=== PATIENT | male | born 1960 | race Caucasian/White ===

== ENCOUNTER 2022-08-06 12:05 | Inpatient (IN) | payer MEDICAID ==
[~2022-08-06] VITALS: Ht 162.6 cm; Wt 59.9 kg
[2022-08-06 12:30] VITALS: BP 106/83
[2022-08-06] MEDS ORDERED: HYDROCODONE/ACETAMINOPHEN 5-325 MG TABLET PO PRN (14:30)
[2022-08-06] MEDS ORDERED: DEXTROSE 50%-WATER 25 GM/50 ML SYRINGE IVP PRN (14:30)
[2022-08-06] MEDS ORDERED: ONDANSETRON HCL 4 MG TABLET PO PRN (14:30)
[2022-08-06 17:52] LABS: GLUCOMETER DEV NAME(LOC) 2WR.1C; GLUCOSE,POINT OF CARE 219 MG/DL (70-110)
[2022-08-06] MEDS: INSULIN LISPRO 100 UNITS/ML SQ PRN ×2 (17:55→20:12)
[2022-08-06] MEDS: CAPTOPRIL 25 MG TABLET PO SCH ×2 (17:57→21:00)
[2022-08-06] MEDS: GABAPENTIN 100 MG CAPSULE PO SCH ×2 (17:57→20:04)
[2022-08-06] MEDS ORDERED: INFLUENZA VIRUS VACCINE QVS 2022-23 (6MO+)/PF 60 MCG/0.5 ML SYRINGE IM. ONE (18:30)
[2022-08-06 19:44] VITALS: BP 102/65
[2022-08-06] MEDS: ATORVASTATIN CALCIUM 40 MG TABLET PO SCH (20:04)
[2022-08-06] MEDS: DOCUSATE SODIUM 100 MG CAPSULE PO SCH (20:04)
[2022-08-06] MEDS: SENNOSIDES 8.6 MG TABLET PO SCH (20:06)
[2022-08-06] MEDS: INSULIN GLARGINE,HUM.REC.ANLOG 100 UNITS/ML SQ SCH (20:11)
[2022-08-06 21:44] VITALS: BP 107/72
[2022-08-06 21:51] LABS: GLUCOMETER DEV NAME(LOC) 2WR.2B; GLUCOSE,POINT OF CARE 156 MG/DL (70-110)
[2022-08-06] MEDS: ETHYL ALCOHOL 62% ANTISEPTIC NASAL SANITIZER 0.6 ML AMPUL NASAL SCH (22:12)
[2022-08-07 06:51] LABS: GLUCOMETER DEV NAME(LOC) 2WR.2B; GLUCOSE,POINT OF CARE 162 MG/DL (70-110)
[2022-08-07 07:39] LABS: BASOPHILS % (AUTO) 0.4 % (0.0-2.0); EOSINOPHILS % (AUTO) 8.3 % (1.0-6.0); HEMATOCRIT 40.3 % (41-53); HEMOGLOBIN 13.6 g/dL (13.5-17.5); LYMPHOCYTES # (AUTO) 1.8 K/uL (1.0-4.8); LYMPHOCYTES % (AUTO) 21.5 % (22.0-44.0); MEAN CORPUSCULAR HEMOGLOBIN 28.7 pg (26.0-34.0); MEAN CORPUSCULAR HGB CONC 33.7 G/dL (31.0-37.0); MEAN CORPUSCULAR VOLUME 85 fL (80-100); MONOCYTES # (AUTO) 0.5 K/uL (0.1-1.0); MONOCYTES % (AUTO) 5.7 % (2.0-9.0); NEUTROPHILS # (AUTO) 5.4 K/uL (1.8-7.7); NEUTROPHILS % (AUTO) 64.1 % (40.0-70.0); PLATELET COUNT (AUTO) 384 K/uL (150-450); RED BLOOD CELL COUNT(AUTO) 4.74 MIL/uL (4.50-5.90); RED CELL DISTRIBUTION WIDTH 12.8 % (11.5-14.5)
[2022-08-07 07:59] LABS: ALBUMIN 2.6 g/dL (3.4-5.0); BILIRUBIN,TOTAL 0.2 mg/dL (0.1-1.0); CALCIUM, TOTAL 8.6 mg/dL (8.8-10.5); CREATININE 1.4 mg/dL (0.60-1.30); POTASSIUM 3.8 mmol/L (3.5-5.1); TOTAL PROTEIN, SERUM 7.1 g/dL (6.4-8.2)
[2022-08-07 08:04] VITALS: BP 120/79
[2022-08-07] MEDS: INSULIN LISPRO 100 UNITS/ML SQ PRN ×4 (08:18→20:37)
[2022-08-07] MEDS: ENOXAPARIN SODIUM 40 MG/0.4 ML PF SYRINGE SQ SCH (08:21)
[2022-08-07] MEDS: CLOPIDOGREL BISULFATE 75 MG TABLET PO SCH (08:22)
[2022-08-07] MEDS: DOCUSATE SODIUM 100 MG CAPSULE PO SCH ×2 (08:22→20:33)
[2022-08-07] MEDS: ASPIRIN/DIPYRIDAMOLE ER 25/200 MG ER CAPSULE PO SCH (08:22)
[2022-08-07] MEDS: FAMOTIDINE 20 MG TABLET PO SCH (08:23)
[2022-08-07] MEDS: ETHYL ALCOHOL 62% ANTISEPTIC NASAL SANITIZER 0.6 ML AMPUL NASAL SCH ×2 (08:23→20:32)
[2022-08-07] MEDS: GABAPENTIN 100 MG CAPSULE PO SCH ×3 (08:23→20:33)
[2022-08-07] MEDS: CAPTOPRIL 25 MG TABLET PO SCH ×3 (08:23→20:32)
[2022-08-07 12:06] LABS: GLUCOMETER DEV NAME(LOC) 2WR.1C; GLUCOSE,POINT OF CARE 158 MG/DL (70-110)
[2022-08-07] MEDS ORDERED: LACTULOSE 20 GM/30 ML SOLUTION UDCUP PO ONE (15:45)
[2022-08-07] MEDS ORDERED: LACTULOSE 20 GM/30 ML SOLUTION UDCUP PO PRN (16:00)
[2022-08-07 17:36] LABS: GLUCOMETER DEV NAME(LOC) 2WR.2B; GLUCOSE,POINT OF CARE 202 MG/DL (70-110)
[2022-08-07] MEDS: ATORVASTATIN CALCIUM 40 MG TABLET PO SCH (20:32)
[2022-08-07] MEDS: TAMSULOSIN HCL 0.4 MG CAPSULE PO SCH (20:32)
[2022-08-07 20:33] VITALS: BP 116/77
[2022-08-07] MEDS: SENNOSIDES 8.6 MG TABLET PO SCH (20:33)
[2022-08-07] MEDS: INSULIN GLARGINE,HUM.REC.ANLOG 100 UNITS/ML SQ SCH (20:35)
[2022-08-07 21:41] LABS: GLUCOMETER DEV NAME(LOC) 2WR.1C; GLUCOSE,POINT OF CARE 180 MG/DL (70-110)
[2022-08-08 07:02] LABS: GLUCOMETER DEV NAME(LOC) 2WR.2B; GLUCOSE,POINT OF CARE 137 MG/DL (70-110)
[2022-08-08 08:00] VITALS: BP 106/74
[2022-08-08] MEDS: FAMOTIDINE 20 MG TABLET PO SCH (08:14)
[2022-08-08] MEDS: ENOXAPARIN SODIUM 40 MG/0.4 ML PF SYRINGE SQ SCH (08:14)
[2022-08-08] MEDS: ETHYL ALCOHOL 62% ANTISEPTIC NASAL SANITIZER 0.6 ML AMPUL NASAL SCH ×2 (08:14→21:35)
[2022-08-08] MEDS: DOCUSATE SODIUM 250 MG CAPSULE PO SCH ×2 (08:14→21:24)
[2022-08-08] MEDS: ASPIRIN/DIPYRIDAMOLE ER 25/200 MG ER CAPSULE PO SCH (08:15)
[2022-08-08] MEDS: CLOPIDOGREL BISULFATE 75 MG TABLET PO SCH (08:15)
[2022-08-08] MEDS: CAPTOPRIL 25 MG TABLET PO SCH ×3 (08:15→21:25)
[2022-08-08] MEDS: GABAPENTIN 100 MG CAPSULE PO SCH ×3 (08:15→21:23)
[2022-08-08] MEDS ORDERED: PNEUMOCOCCAL VACCINE POLYVALENT 0.5 ML VIAL [PPSV23] IM. ONE (12:15)
[2022-08-08] MEDS: INSULIN LISPRO 100 UNITS/ML SQ PRN ×3 (12:33→21:29)
[2022-08-08 14:01] LABS: GLUCOMETER DEV NAME(LOC) 2WR.2B; GLUCOSE,POINT OF CARE 176 MG/DL (70-110)
[2022-08-08 16:30] VITALS: BP 108/57
[2022-08-08 17:17] LABS: GLUCOMETER DEV NAME(LOC) 2WR.1C; GLUCOSE,POINT OF CARE 249 MG/DL (70-110)
[2022-08-08 21:00] VITALS: BP 119/80
[2022-08-08] MEDS: SENNOSIDES 8.6 MG TABLET PO SCH (21:24)
[2022-08-08] MEDS: TAMSULOSIN HCL 0.4 MG CAPSULE PO SCH (21:25)
[2022-08-08] MEDS: INSULIN GLARGINE,HUM.REC.ANLOG 100 UNITS/ML SQ SCH (21:26)
[2022-08-08] MEDS: ATORVASTATIN CALCIUM 40 MG TABLET PO SCH (21:33)
[2022-08-08] MEDS: DOCUSATE SODIUM 283 MG/5 ML MINI-ENEMA PR PRN (21:34)
[2022-08-08 22:21] LABS: GLUCOMETER DEV NAME(LOC) 2WR.2B; GLUCOSE,POINT OF CARE 234 MG/DL (70-110)
[2022-08-09 07:06] LABS: GLUCOMETER DEV NAME(LOC) 2WR.2B; GLUCOSE,POINT OF CARE 173 MG/DL (70-110)
[2022-08-09 08:00] VITALS: BP 116/76
[2022-08-09] MEDS: ENOXAPARIN SODIUM 40 MG/0.4 ML PF SYRINGE SQ SCH (08:09)
[2022-08-09] MEDS: ASPIRIN/DIPYRIDAMOLE ER 25/200 MG ER CAPSULE PO SCH (08:09)
[2022-08-09] MEDS: CAPTOPRIL 25 MG TABLET PO SCH ×3 (08:09→21:12)
[2022-08-09] MEDS: ETHYL ALCOHOL 62% ANTISEPTIC NASAL SANITIZER 0.6 ML AMPUL NASAL SCH ×2 (08:10→21:18)
[2022-08-09] MEDS: DOCUSATE SODIUM 250 MG CAPSULE PO SCH ×2 (08:10→21:13)
[2022-08-09] MEDS: GABAPENTIN 100 MG CAPSULE PO SCH ×3 (08:10→21:12)
[2022-08-09] MEDS: FAMOTIDINE 20 MG TABLET PO SCH (08:10)
[2022-08-09] MEDS: CLOPIDOGREL BISULFATE 75 MG TABLET PO SCH (08:10)
[2022-08-09] MEDS: INSULIN LISPRO 100 UNITS/ML SQ PRN ×4 (08:34→21:15)
[2022-08-09 12:56] LABS: GLUCOMETER DEV NAME(LOC) 2WR.1C; GLUCOSE,POINT OF CARE 230 MG/DL (70-110)
[2022-08-09 16:20] VITALS: BP 114/80
[2022-08-09 17:17] LABS: GLUCOMETER DEV NAME(LOC) 2WR.1C; GLUCOSE,POINT OF CARE 181 MG/DL (70-110)
[2022-08-09 21:09] VITALS: BP 118/78
[2022-08-09 21:11] LABS: GLUCOMETER DEV NAME(LOC) 2WR.2B; GLUCOSE,POINT OF CARE 205 MG/DL (70-110)
[2022-08-09] MEDS: SENNOSIDES 8.6 MG TABLET PO SCH (21:12)
[2022-08-09] MEDS: TAMSULOSIN HCL 0.4 MG CAPSULE PO SCH (21:12)
[2022-08-09] MEDS: ATORVASTATIN CALCIUM 40 MG TABLET PO SCH (21:13)
[2022-08-09] MEDS: INSULIN GLARGINE,HUM.REC.ANLOG 100 UNITS/ML SQ SCH (21:14)
[2022-08-10 06:41] LABS: GLUCOMETER DEV NAME(LOC) 2WR.1C; GLUCOSE,POINT OF CARE 128 MG/DL (70-110)
[2022-08-10 08:00] VITALS: BP 99/67
[2022-08-10] MEDS: ETHYL ALCOHOL 62% ANTISEPTIC NASAL SANITIZER 0.6 ML AMPUL NASAL SCH ×2 (08:21→21:02)
[2022-08-10] MEDS: ASPIRIN/DIPYRIDAMOLE ER 25/200 MG ER CAPSULE PO SCH (08:22)
[2022-08-10] MEDS: CAPTOPRIL 25 MG TABLET PO SCH ×3 (08:23→21:00)
[2022-08-10] MEDS: DOCUSATE SODIUM 250 MG CAPSULE PO SCH ×2 (08:23→21:00)
[2022-08-10] MEDS: CLOPIDOGREL BISULFATE 75 MG TABLET PO SCH (08:24)
[2022-08-10] MEDS: FAMOTIDINE 20 MG TABLET PO SCH (08:24)
[2022-08-10] MEDS: GABAPENTIN 100 MG CAPSULE PO SCH ×3 (08:24→21:04)
[2022-08-10] MEDS: ENOXAPARIN SODIUM 40 MG/0.4 ML PF SYRINGE SQ SCH (08:24)
[2022-08-10] MEDS: ACETAMINOPHEN 325 MG TABLET PO PRN ×2 (08:26→13:50)
[2022-08-10 08:30] VITALS: BP 102/81
[2022-08-10] MEDS: INSULIN LISPRO 100 UNITS/ML SQ PRN ×3 (12:33→21:16)
[2022-08-10 13:17] LABS: GLUCOMETER DEV NAME(LOC) 2WR.2B; GLUCOSE,POINT OF CARE 158 MG/DL (70-110)
[2022-08-10 16:45] VITALS: BP 116/84
[2022-08-10 20:11] LABS: GLUCOMETER DEV NAME(LOC) 2WR.1C; GLUCOSE,POINT OF CARE 157 MG/DL (70-110)
[2022-08-10] MEDS: SENNOSIDES 8.6 MG TABLET PO SCH (21:00)
[2022-08-10 21:02] LABS: GLUCOMETER DEV NAME(LOC) 2WR.2B; GLUCOSE,POINT OF CARE 173 MG/DL (70-110)
[2022-08-10] MEDS: ATORVASTATIN CALCIUM 40 MG TABLET PO SCH (21:03)
[2022-08-10] MEDS: TAMSULOSIN HCL 0.4 MG CAPSULE PO SCH (21:04)
[2022-08-10] MEDS: INSULIN GLARGINE,HUM.REC.ANLOG 100 UNITS/ML SQ SCH (21:08)
[2022-08-10 21:32] VITALS: BP 99/69
[2022-08-11 06:51] LABS: GLUCOMETER DEV NAME(LOC) 2WR.1C; GLUCOSE,POINT OF CARE 119 MG/DL (70-110)
[2022-08-11 07:38] LABS: ANION GAP 8 mmol/L (8-16); CALCIUM, TOTAL 8.5 mg/dL (8.8-10.5); CARBON DIOXIDE 25 mmol/L (22-29); CHLORIDE 100 mmol/L (98-107); CREATININE 1.15 mg/dL (0.60-1.30); GLOMERULAR FILTR. RATE CALC > 60 mL/min (>60); GLUCOSE,RANDOM 131 mg/dL (70-110); POTASSIUM 4.3 mmol/L (3.5-5.1); SODIUM SERUM 133 mmol/L (136-145); UREA NITROGEN, BLOOD 31 mg/dL (7-18)
[2022-08-11 08:40] VITALS: BP 109/77
[2022-08-11] MEDS: MULTIVITAMINS WITH MINERALS, THERAPEUTIC TABLET PO SCH (10:13)
[2022-08-11] MEDS: FAMOTIDINE 20 MG TABLET PO SCH (10:13)
[2022-08-11] MEDS: CAPTOPRIL 25 MG TABLET PO SCH ×3 (10:14→20:46)
[2022-08-11] MEDS: GABAPENTIN 100 MG CAPSULE PO SCH ×3 (10:14→20:40)
[2022-08-11] MEDS: ASPIRIN/DIPYRIDAMOLE ER 25/200 MG ER CAPSULE PO SCH (10:14)
[2022-08-11] MEDS: ENOXAPARIN SODIUM 40 MG/0.4 ML PF SYRINGE SQ SCH (10:14)
[2022-08-11] MEDS: ETHYL ALCOHOL 62% ANTISEPTIC NASAL SANITIZER 0.6 ML AMPUL NASAL SCH ×2 (10:14→20:40)
[2022-08-11] MEDS: DOCUSATE SODIUM 250 MG CAPSULE PO SCH ×2 (10:14→20:40)
[2022-08-11] MEDS: CLOPIDOGREL BISULFATE 75 MG TABLET PO SCH (10:14)
[2022-08-11] MEDS: ACETAMINOPHEN 325 MG TABLET PO PRN (11:46)
[2022-08-11] MEDS: INSULIN LISPRO 100 UNITS/ML SQ PRN ×2 (12:51→17:54)
[2022-08-11 13:16] LABS: GLUCOMETER DEV NAME(LOC) 2WR.2B; GLUCOSE,POINT OF CARE 202 MG/DL (70-110)
[2022-08-11 17:57] LABS: GLUCOMETER DEV NAME(LOC) 2WR.1C; GLUCOSE,POINT OF CARE 150 MG/DL (70-110)
[2022-08-11 20:30] VITALS: BP 109/74
[2022-08-11] MEDS: SENNOSIDES 8.6 MG TABLET PO SCH (20:39)
[2022-08-11] MEDS: TAMSULOSIN HCL 0.4 MG CAPSULE PO SCH (20:40)
[2022-08-11] MEDS: ATORVASTATIN CALCIUM 40 MG TABLET PO SCH (20:40)
[2022-08-11] MEDS: INSULIN GLARGINE,HUM.REC.ANLOG 100 UNITS/ML SQ SCH (20:45)
[2022-08-11 20:46] VITALS: BP 103/66
[2022-08-12 05:21] LABS: GLUCOMETER DEV NAME(LOC) 2WR.1C; GLUCOSE,POINT OF CARE 130 MG/DL (70-110)
[2022-08-12 06:46] LABS: GLUCOMETER DEV NAME(LOC) 2WR.1C; GLUCOSE,POINT OF CARE 115 MG/DL (70-110)
[2022-08-12] MEDS: ETHYL ALCOHOL 62% ANTISEPTIC NASAL SANITIZER 0.6 ML AMPUL NASAL SCH ×2 (07:57→21:29)
[2022-08-12] MEDS: ENOXAPARIN SODIUM 40 MG/0.4 ML PF SYRINGE SQ SCH (07:58)
[2022-08-12] MEDS: ASPIRIN/DIPYRIDAMOLE ER 25/200 MG ER CAPSULE PO SCH (08:00)
[2022-08-12] MEDS: MULTIVITAMINS WITH MINERALS, THERAPEUTIC TABLET PO SCH (08:00)
[2022-08-12] MEDS: FAMOTIDINE 20 MG TABLET PO SCH (08:01)
[2022-08-12] MEDS: CLOPIDOGREL BISULFATE 75 MG TABLET PO SCH (08:02)
[2022-08-12] MEDS: GABAPENTIN 100 MG CAPSULE PO SCH ×3 (08:02→21:29)
[2022-08-12] MEDS: CAPTOPRIL 25 MG TABLET PO SCH ×3 (08:03→21:29)
[2022-08-12] MEDS: DOCUSATE SODIUM 250 MG CAPSULE PO SCH ×2 (08:04→21:00)
[2022-08-12 08:12] VITALS: BP 112/76
[2022-08-12 11:02] LABS: APPEARANCE,URINE CLEAR (CLEAR); BILIRUBIN,URINE NEGATIVE (NEGATIVE); GLUCOSE, URINE (UA) 150-200 mg/dL (NEGATIVE); KETONES,URINE NEGATIVE (NEGATIVE); LEUKOCYTE ESTERASE ,URINE NEGATIVE (NEGATIVE); NITRATE,URINE NEGATIVE (NEGATIVE); OCCULT BLOOD,URINE TRACE (NEGATIVE); PH,URINE 6.5 (5.0-8.0); PROTEIN,URINE TRACE mg/dL (NEGATIVE); SPECIFIC GRAVITIY, URINE 1.013 (1.003-1.030); UROBILINOGEN,URINE <=1.0 mg/dL (<=1.0)
[2022-08-12 11:43] LABS: BACTERIA,URINE Rare /HPF (None Seen); RBC,URINE 0-2 /HPF (0-2); SQUAMOUS EPITHELIAL CELL,UR Rare /LPF (None Seen)
[2022-08-12 12:56] LABS: GLUCOMETER DEV NAME(LOC) 2WR.2B; GLUCOSE,POINT OF CARE 131 MG/DL (70-110)
[2022-08-12 16:08] VITALS: BP 115/77
[2022-08-12 16:46] LABS: GLUCOMETER DEV NAME(LOC) 2WR.2B; GLUCOSE,POINT OF CARE 174 MG/DL (70-110)
[2022-08-12] MEDS: INSULIN LISPRO 100 UNITS/ML SQ PRN ×2 (17:38→21:34)
[2022-08-12 21:00] VITALS: BP 134/92
[2022-08-12] MEDS: SENNOSIDES 8.6 MG TABLET PO SCH (21:00)
[2022-08-12] MEDS: TAMSULOSIN HCL 0.4 MG CAPSULE PO SCH (21:29)
[2022-08-12] MEDS: ATORVASTATIN CALCIUM 40 MG TABLET PO SCH (21:29)
[2022-08-12] MEDS: INSULIN GLARGINE,HUM.REC.ANLOG 100 UNITS/ML SQ SCH (21:32)
[2022-08-12 22:11] LABS: GLUCOMETER DEV NAME(LOC) 2WR.2B; GLUCOSE,POINT OF CARE 172 MG/DL (70-110)
[2022-08-13 02:21] LABS: GLUCOMETER DEV NAME(LOC) 2WR.1C; GLUCOSE,POINT OF CARE 182 MG/DL (70-110)
[2022-08-13 06:57] LABS: GLUCOMETER DEV NAME(LOC) 2WR.1C; GLUCOSE,POINT OF CARE 116 MG/DL (70-110)
[2022-08-13 08:05] VITALS: BP 118/73
[2022-08-13] MEDS: CLOPIDOGREL BISULFATE 75 MG TABLET PO SCH (08:09)
[2022-08-13] MEDS: ASPIRIN/DIPYRIDAMOLE ER 25/200 MG ER CAPSULE PO SCH (08:09)
[2022-08-13] MEDS: ETHYL ALCOHOL 62% ANTISEPTIC NASAL SANITIZER 0.6 ML AMPUL NASAL SCH ×2 (08:09→20:52)
[2022-08-13] MEDS: FAMOTIDINE 20 MG TABLET PO SCH (08:10)
[2022-08-13] MEDS: MULTIVITAMINS WITH MINERALS, THERAPEUTIC TABLET PO SCH (08:10)
[2022-08-13] MEDS: DOCUSATE SODIUM 250 MG CAPSULE PO SCH ×2 (08:10→20:51)
[2022-08-13] MEDS: CAPTOPRIL 25 MG TABLET PO SCH ×3 (08:10→20:52)
[2022-08-13] MEDS: GABAPENTIN 100 MG CAPSULE PO SCH ×3 (08:10→20:51)
[2022-08-13] MEDS: ENOXAPARIN SODIUM 40 MG/0.4 ML PF SYRINGE SQ SCH (08:10)
[2022-08-13] MEDS: ACETAMINOPHEN 325 MG TABLET PO PRN (09:57)
[2022-08-13 12:21] LABS: GLUCOMETER DEV NAME(LOC) 2WR.1C; GLUCOSE,POINT OF CARE 145 MG/DL (70-110)
[2022-08-13] MEDS: INSULIN LISPRO 100 UNITS/ML SQ PRN ×3 (12:31→20:50)
[2022-08-13 17:02] LABS: GLUCOMETER DEV NAME(LOC) 2WR.1C; GLUCOSE,POINT OF CARE 155 MG/DL (70-110)
[2022-08-13 20:47] VITALS: BP 125/87
[2022-08-13] MEDS: SENNOSIDES 8.6 MG TABLET PO SCH (20:51)
[2022-08-13] MEDS: INSULIN GLARGINE,HUM.REC.ANLOG 100 UNITS/ML SQ SCH (20:51)
[2022-08-13] MEDS: ATORVASTATIN CALCIUM 40 MG TABLET PO SCH (20:51)
[2022-08-13] MEDS: TAMSULOSIN HCL 0.4 MG CAPSULE PO SCH (20:53)
[2022-08-13 21:26] LABS: GLUCOMETER DEV NAME(LOC) 2WR.2B; GLUCOSE,POINT OF CARE 141 MG/DL (70-110)
[2022-08-13] MEDS ORDERED: ATOR40TA28 PO (22:49)
[2022-08-13] MEDS ORDERED: MULT-248 PO (22:49)
[2022-08-13] MEDS ORDERED: INSU100V SQ (22:49)
[2022-08-13] MEDS ORDERED: CAPT25TA3 PO (22:49)
[2022-08-13] MEDS ORDERED: ASPI1CPM21 PO (22:49)
[2022-08-13] MEDS ORDERED: DOCU-350 PO (22:49)
[2022-08-13] MEDS ORDERED: GABA-1216 PO (22:49)
[2022-08-13] MEDS ORDERED: INSLAN SQ (22:49)
[2022-08-13] MEDS ORDERED: FAMO20 PO (22:49)
[2022-08-13] MEDS ORDERED: CLOP75TA60 PO (22:49)
[2022-08-13] MEDS ORDERED: TAMS-13 PO (22:49)
[2022-08-14 06:41] LABS: GLUCOMETER DEV NAME(LOC) 2WR.2B; GLUCOSE,POINT OF CARE 122 MG/DL (70-110)
[2022-08-14 08:34] VITALS: BP 105/78
[2022-08-14] MEDS: CLOPIDOGREL BISULFATE 75 MG TABLET PO SCH (09:09)
[2022-08-14] MEDS: ENOXAPARIN SODIUM 40 MG/0.4 ML PF SYRINGE SQ SCH (09:09)
[2022-08-14] MEDS: ASPIRIN/DIPYRIDAMOLE ER 25/200 MG ER CAPSULE PO SCH (09:09)
[2022-08-14] MEDS: FAMOTIDINE 20 MG TABLET PO SCH (09:09)
[2022-08-14] MEDS: DOCUSATE SODIUM 250 MG CAPSULE PO SCH ×2 (09:09→21:10)
[2022-08-14] MEDS: ETHYL ALCOHOL 62% ANTISEPTIC NASAL SANITIZER 0.6 ML AMPUL NASAL SCH ×2 (09:10→21:10)
[2022-08-14] MEDS: MULTIVITAMINS WITH MINERALS, THERAPEUTIC TABLET PO SCH (09:10)
[2022-08-14] MEDS: GABAPENTIN 100 MG CAPSULE PO SCH ×3 (09:10→21:10)
[2022-08-14] MEDS: CAPTOPRIL 25 MG TABLET PO SCH ×3 (10:36→21:11)
[2022-08-14] MEDS: ACETAMINOPHEN 325 MG TABLET PO PRN (11:32)
[2022-08-14] MEDS: INSULIN LISPRO 100 UNITS/ML SQ PRN ×3 (12:15→21:12)
[2022-08-14 13:36] LABS: GLUCOMETER DEV NAME(LOC) 2WR.2B; GLUCOSE,POINT OF CARE 146 MG/DL (70-110)
[2022-08-14 20:31] LABS: GLUCOMETER DEV NAME(LOC) 2WR.1C; GLUCOSE,POINT OF CARE 176 MG/DL (70-110)
[2022-08-14 20:31] LABS: GLUCOMETER DEV NAME(LOC) 2WR.1C; GLUCOSE,POINT OF CARE 174 MG/DL (70-110)
[2022-08-14 21:00] VITALS: BP 116/78
[2022-08-14] MEDS: ATORVASTATIN CALCIUM 40 MG TABLET PO SCH (21:10)
[2022-08-14] MEDS: TAMSULOSIN HCL 0.4 MG CAPSULE PO SCH (21:10)
[2022-08-14] MEDS: SENNOSIDES 8.6 MG TABLET PO SCH (21:11)
[2022-08-14] MEDS: INSULIN GLARGINE,HUM.REC.ANLOG 100 UNITS/ML SQ SCH (21:12)
[2022-08-15] MEDS: DOCUSATE SODIUM 283 MG/5 ML MINI-ENEMA PR PRN (06:44)
[2022-08-15 06:51] LABS: GLUCOMETER DEV NAME(LOC) 2WR.2B; GLUCOSE,POINT OF CARE 144 MG/DL (70-110)
[2022-08-15 08:01] VITALS: BP 112/57
[2022-08-15] MEDS: ACETAMINOPHEN 325 MG TABLET PO PRN (08:01)
[2022-08-15] MEDS: ENOXAPARIN SODIUM 40 MG/0.4 ML PF SYRINGE SQ SCH (08:02)
[2022-08-15] MEDS: FAMOTIDINE 20 MG TABLET PO SCH (08:03)
[2022-08-15] MEDS: CLOPIDOGREL BISULFATE 75 MG TABLET PO SCH (08:03)
[2022-08-15] MEDS: MULTIVITAMINS WITH MINERALS, THERAPEUTIC TABLET PO SCH (08:03)
[2022-08-15] MEDS: DOCUSATE SODIUM 250 MG CAPSULE PO SCH ×2 (08:03→20:37)
[2022-08-15] MEDS: CAPTOPRIL 25 MG TABLET PO SCH ×3 (08:03→20:38)
[2022-08-15] MEDS: GABAPENTIN 100 MG CAPSULE PO SCH ×3 (08:03→20:37)
[2022-08-15] MEDS: ETHYL ALCOHOL 62% ANTISEPTIC NASAL SANITIZER 0.6 ML AMPUL NASAL SCH ×2 (08:03→20:38)
[2022-08-15] MEDS: ASPIRIN/DIPYRIDAMOLE ER 25/200 MG ER CAPSULE PO SCH ×2 (09:09→20:37)
[2022-08-15] MEDS: INSULIN LISPRO 100 UNITS/ML SQ PRN ×4 (09:58→20:42)
[2022-08-15 14:40] LABS: GLUCOMETER DEV NAME(LOC) 2WR.1C; GLUCOSE,POINT OF CARE 171 MG/DL (70-110)
[2022-08-15 16:40] VITALS: BP 114/84
[2022-08-15 18:21] LABS: GLUCOMETER DEV NAME(LOC) 2WR.1C; GLUCOSE,POINT OF CARE 181 MG/DL (70-110)
[2022-08-15 20:00] VITALS: BP 116/75
[2022-08-15] MEDS: TAMSULOSIN HCL 0.4 MG CAPSULE PO SCH (20:37)
[2022-08-15] MEDS: SENNOSIDES 8.6 MG TABLET PO SCH (20:37)
[2022-08-15] MEDS: ATORVASTATIN CALCIUM 40 MG TABLET PO SCH (20:38)
[2022-08-15] MEDS: INSULIN GLARGINE,HUM.REC.ANLOG 100 UNITS/ML SQ SCH (20:41)
[2022-08-15 22:41] LABS: GLUCOMETER DEV NAME(LOC) 2WR.1C; GLUCOSE,POINT OF CARE 269 MG/DL (70-110)
[2022-08-16 06:36] LABS: GLUCOMETER DEV NAME(LOC) 2WR.2B; GLUCOSE,POINT OF CARE 129 MG/DL (70-110)
[2022-08-16 07:30] VITALS: BP 112/74
[2022-08-16] MEDS: ETHYL ALCOHOL 62% ANTISEPTIC NASAL SANITIZER 0.6 ML AMPUL NASAL SCH ×2 (07:36→21:10)
[2022-08-16] MEDS: CLOPIDOGREL BISULFATE 75 MG TABLET PO SCH (07:37)
[2022-08-16] MEDS: MULTIVITAMINS WITH MINERALS, THERAPEUTIC TABLET PO SCH (07:37)
[2022-08-16] MEDS: ENOXAPARIN SODIUM 40 MG/0.4 ML PF SYRINGE SQ SCH (07:37)
[2022-08-16] MEDS: ASPIRIN/DIPYRIDAMOLE ER 25/200 MG ER CAPSULE PO SCH ×2 (07:37→21:10)
[2022-08-16] MEDS: GABAPENTIN 100 MG CAPSULE PO SCH ×3 (07:37→21:13)
[2022-08-16] MEDS: DOCUSATE SODIUM 250 MG CAPSULE PO SCH ×2 (07:37→21:00)
[2022-08-16] MEDS: FAMOTIDINE 20 MG TABLET PO SCH (07:37)
[2022-08-16] MEDS: CAPTOPRIL 25 MG TABLET PO SCH ×3 (07:37→21:11)
[2022-08-16 12:05] VITALS: BP 117/82
[2022-08-16] MEDS: INSULIN LISPRO 100 UNITS/ML SQ PRN ×3 (12:20→21:15)
[2022-08-16 12:41] LABS: GLUCOMETER DEV NAME(LOC) 2WR.2B; GLUCOSE,POINT OF CARE 179 MG/DL (70-110)
[2022-08-16 16:38] VITALS: BP 116/78
[2022-08-16 17:01] LABS: GLUCOMETER DEV NAME(LOC) 2WR.2B; GLUCOSE,POINT OF CARE 161 MG/DL (70-110)
[2022-08-16 21:00] VITALS: BP 124/84
[2022-08-16] MEDS: SENNOSIDES 8.6 MG TABLET PO SCH (21:00)
[2022-08-16] MEDS: TAMSULOSIN HCL 0.4 MG CAPSULE PO SCH (21:13)
[2022-08-16] MEDS: ATORVASTATIN CALCIUM 40 MG TABLET PO SCH (21:13)
[2022-08-16] MEDS: INSULIN GLARGINE,HUM.REC.ANLOG 100 UNITS/ML SQ SCH (21:16)
[2022-08-16 21:46] LABS: GLUCOMETER DEV NAME(LOC) 2WR.2B; GLUCOSE,POINT OF CARE 196 MG/DL (70-110)
[2022-08-17 06:55] LABS: BASOPHILS % (AUTO) 0.4 % (0.0-2.0); HEMATOCRIT 38.1 % (41-53); HEMOGLOBIN 12.6 g/dL (13.5-17.5); LYMPHOCYTES # (AUTO) 1.9 K/uL (1.0-4.8); LYMPHOCYTES % (AUTO) 26.8 % (22.0-44.0); MEAN CORPUSCULAR HEMOGLOBIN 28.4 pg (26.0-34.0); MEAN CORPUSCULAR HGB CONC 33.1 G/dL (31.0-37.0); MEAN CORPUSCULAR VOLUME 86 fL (80-100); MONOCYTES # (AUTO) 0.6 K/uL (0.1-1.0); MONOCYTES % (AUTO) 7.7 % (2.0-9.0); NEUTROPHILS # (AUTO) 4.1 K/uL (1.8-7.7); NEUTROPHILS % (AUTO) 57.1 % (40.0-70.0); PLATELET COUNT (AUTO) 368 K/uL (150-450); RED BLOOD CELL COUNT(AUTO) 4.45 MIL/uL (4.50-5.90); RED CELL DISTRIBUTION WIDTH 13.4 % (11.5-14.5)
[2022-08-17 07:06] LABS: GLUCOMETER DEV NAME(LOC) 2WR.1C; GLUCOSE,POINT OF CARE 119 MG/DL (70-110)
[2022-08-17 07:07] LABS: ANION GAP 7 mmol/L (8-16); CALCIUM, TOTAL 8.5 mg/dL (8.8-10.5); CARBON DIOXIDE 27 mmol/L (22-29); CHLORIDE 102 mmol/L (98-107); CREATININE 1.05 mg/dL (0.60-1.30); GLOMERULAR FILTR. RATE CALC > 60 mL/min (>60); GLUCOSE,RANDOM 116 mg/dL (70-110); POTASSIUM 4.3 mmol/L (3.5-5.1); SODIUM SERUM 136 mmol/L (136-145); UREA NITROGEN, BLOOD 25 mg/dL (7-18)
[2022-08-17 08:00] VITALS: BP 103/70
[2022-08-17] MEDS: ETHYL ALCOHOL 62% ANTISEPTIC NASAL SANITIZER 0.6 ML AMPUL NASAL SCH ×2 (08:19→20:41)
[2022-08-17] MEDS: CAPTOPRIL 25 MG TABLET PO SCH ×3 (08:20→21:40)
[2022-08-17] MEDS: DOCUSATE SODIUM 250 MG CAPSULE PO SCH ×2 (08:20→20:44)
[2022-08-17] MEDS: ASPIRIN/DIPYRIDAMOLE ER 25/200 MG ER CAPSULE PO SCH ×2 (08:20→20:44)
[2022-08-17] MEDS: FAMOTIDINE 20 MG TABLET PO SCH (08:21)
[2022-08-17] MEDS: MULTIVITAMINS WITH MINERALS, THERAPEUTIC TABLET PO SCH (08:21)
[2022-08-17] MEDS: ENOXAPARIN SODIUM 40 MG/0.4 ML PF SYRINGE SQ SCH (08:21)
[2022-08-17] MEDS: CLOPIDOGREL BISULFATE 75 MG TABLET PO SCH (08:21)
[2022-08-17] MEDS: GABAPENTIN 100 MG CAPSULE PO SCH ×3 (08:21→20:44)
[2022-08-17] MEDS: INSULIN LISPRO 100 UNITS/ML SQ PRN ×3 (12:38→20:48)
[2022-08-17 13:11] LABS: GLUCOMETER DEV NAME(LOC) 2WR.2B; GLUCOSE,POINT OF CARE 163 MG/DL (70-110)
[2022-08-17 15:41] VITALS: BP 117/80
[2022-08-17 19:59] VITALS: BP 111/66
[2022-08-17] MEDS: SENNOSIDES 8.6 MG TABLET PO SCH (20:41)
[2022-08-17] MEDS: TAMSULOSIN HCL 0.4 MG CAPSULE PO SCH (20:44)
[2022-08-17] MEDS: INSULIN GLARGINE,HUM.REC.ANLOG 100 UNITS/ML SQ SCH (20:46)
[2022-08-17] MEDS: ATORVASTATIN CALCIUM 40 MG TABLET PO SCH (20:52)
[2022-08-18 05:46] LABS: GLUCOMETER DEV NAME(LOC) 2WR.1C; GLUCOSE,POINT OF CARE 185 MG/DL (70-110)
[2022-08-18 05:51] LABS: GLUCOMETER DEV NAME(LOC) 2WR.1C; GLUCOSE,POINT OF CARE 263 MG/DL (70-110)
[2022-08-18 08:20] VITALS: BP 137/83
[2022-08-18 08:36] LABS: GLUCOMETER DEV NAME(LOC) 2WR.1C; GLUCOSE,POINT OF CARE 137 MG/DL (70-110)
[2022-08-18] MEDS: GABAPENTIN 100 MG CAPSULE PO SCH ×3 (09:13→21:53)
[2022-08-18] MEDS: ENOXAPARIN SODIUM 40 MG/0.4 ML PF SYRINGE SQ SCH (09:13)
[2022-08-18] MEDS: CLOPIDOGREL BISULFATE 75 MG TABLET PO SCH (09:13)
[2022-08-18] MEDS: DOCUSATE SODIUM 250 MG CAPSULE PO SCH ×2 (09:13→21:53)
[2022-08-18] MEDS: ASPIRIN/DIPYRIDAMOLE ER 25/200 MG ER CAPSULE PO SCH ×2 (09:14→21:52)
[2022-08-18] MEDS: MULTIVITAMINS WITH MINERALS, THERAPEUTIC TABLET PO SCH (09:14)
[2022-08-18] MEDS: CAPTOPRIL 25 MG TABLET PO SCH ×3 (09:14→21:52)
[2022-08-18] MEDS: ETHYL ALCOHOL 62% ANTISEPTIC NASAL SANITIZER 0.6 ML AMPUL NASAL SCH ×2 (09:14→21:51)
[2022-08-18] MEDS: FAMOTIDINE 20 MG TABLET PO SCH (09:14)
[2022-08-18] MEDS: ACETAMINOPHEN 325 MG TABLET PO PRN (09:50)
[2022-08-18] MEDS: INSULIN LISPRO 100 UNITS/ML SQ PRN ×2 (13:24→21:51)
[2022-08-18 14:01] LABS: GLUCOMETER DEV NAME(LOC) 2WR.1C; GLUCOSE,POINT OF CARE 186 MG/DL (70-110)
[2022-08-18 17:41] LABS: GLUCOMETER DEV NAME(LOC) 2WR.2B; GLUCOSE,POINT OF CARE 127 MG/DL (70-110)
[2022-08-18 20:00] VITALS: BP 126/78
[2022-08-18 21:11] LABS: GLUCOMETER DEV NAME(LOC) 2WR.2B; GLUCOSE,POINT OF CARE 180 MG/DL (70-110)
[2022-08-18] MEDS: INSULIN GLARGINE,HUM.REC.ANLOG 100 UNITS/ML SQ SCH (21:50)
[2022-08-18] MEDS: TAMSULOSIN HCL 0.4 MG CAPSULE PO SCH (21:52)
[2022-08-18] MEDS: ATORVASTATIN CALCIUM 40 MG TABLET PO SCH (21:53)
[2022-08-18] MEDS: SENNOSIDES 8.6 MG TABLET PO SCH (21:53)
[2022-08-19 07:21] LABS: GLUCOMETER DEV NAME(LOC) 2WR.1C; GLUCOSE,POINT OF CARE 127 MG/DL (70-110)
[2022-08-19 08:10] VITALS: BP 98/65
[2022-08-19] MEDS: ETHYL ALCOHOL 62% ANTISEPTIC NASAL SANITIZER 0.6 ML AMPUL NASAL SCH ×2 (08:19→21:26)
[2022-08-19] MEDS: CAPTOPRIL 25 MG TABLET PO SCH ×3 (08:19→21:25)
[2022-08-19] MEDS: GABAPENTIN 100 MG CAPSULE PO SCH ×3 (08:19→21:26)
[2022-08-19] MEDS: DOCUSATE SODIUM 250 MG CAPSULE PO SCH ×2 (08:19→21:25)
[2022-08-19] MEDS: ASPIRIN/DIPYRIDAMOLE ER 25/200 MG ER CAPSULE PO SCH ×2 (08:19→21:27)
[2022-08-19] MEDS: CLOPIDOGREL BISULFATE 75 MG TABLET PO SCH (08:20)
[2022-08-19] MEDS: MULTIVITAMINS WITH MINERALS, THERAPEUTIC TABLET PO SCH (08:20)
[2022-08-19] MEDS: FAMOTIDINE 20 MG TABLET PO SCH (08:20)
[2022-08-19] MEDS: ENOXAPARIN SODIUM 40 MG/0.4 ML PF SYRINGE SQ SCH (08:20)
[2022-08-19 09:26] VITALS: BP 111/78
[2022-08-19] MEDS: ACETAMINOPHEN 325 MG TABLET PO PRN (09:26)
[2022-08-19] MEDS ORDERED: MULT-1239 PO (09:28)
[2022-08-19] MEDS ORDERED: ATOR40TA71 PO (09:28)
[2022-08-19] MEDS ORDERED: CAPT25TA3 PO (09:28)
[2022-08-19] MEDS ORDERED: SENN-187 PO (09:28)
[2022-08-19] MEDS ORDERED: DOCU-350 PO (09:28)
[2022-08-19] MEDS ORDERED: CLOP75TA60 PO (09:28)
[2022-08-19] MEDS ORDERED: GABA-1216 PO (09:28)
[2022-08-19] MEDS ORDERED: ASPI1CPM21 PO (09:28)
[2022-08-19] MEDS ORDERED: FAMO20 PO (09:28)
[2022-08-19] MEDS ORDERED: TAMS-13 PO (09:28)
[2022-08-19] MEDS ORDERED: INSU100V SQ (09:28)
[2022-08-19] MEDS ORDERED: INSLAN SQ (09:28)
[2022-08-19 12:31] LABS: GLUCOMETER DEV NAME(LOC) 2WR.2B; GLUCOSE,POINT OF CARE 190 MG/DL (70-110)
[2022-08-19] MEDS: INSULIN LISPRO 100 UNITS/ML SQ PRN ×3 (13:08→21:29)
[2022-08-19 15:37] VITALS: BP 119/82
[2022-08-19 17:01] LABS: GLUCOMETER DEV NAME(LOC) 2WR.1C; GLUCOSE,POINT OF CARE 214 MG/DL (70-110)
[2022-08-19 21:20] VITALS: BP 110/68
[2022-08-19] MEDS: SENNOSIDES 8.6 MG TABLET PO SCH (21:25)
[2022-08-19] MEDS: ATORVASTATIN CALCIUM 40 MG TABLET PO SCH (21:25)
[2022-08-19] MEDS: TAMSULOSIN HCL 0.4 MG CAPSULE PO SCH (21:27)
[2022-08-19] MEDS: INSULIN GLARGINE,HUM.REC.ANLOG 100 UNITS/ML SQ SCH (21:30)
[2022-08-20 04:21] LABS: GLUCOMETER DEV NAME(LOC) 2WR.2B; GLUCOSE,POINT OF CARE 174 MG/DL (70-110)
[2022-08-20 07:01] LABS: GLUCOMETER DEV NAME(LOC) 2WR.1C; GLUCOSE,POINT OF CARE 120 MG/DL (70-110)
[2022-08-20 08:01] VITALS: BP 104/69
[2022-08-20] MEDS: CAPTOPRIL 25 MG TABLET PO SCH (09:00)
[2022-08-20] MEDS: ENOXAPARIN SODIUM 40 MG/0.4 ML PF SYRINGE SQ SCH (09:00)
[2022-08-20] MEDS: CLOPIDOGREL BISULFATE 75 MG TABLET PO SCH (09:00)
[2022-08-20] MEDS: ASPIRIN/DIPYRIDAMOLE ER 25/200 MG ER CAPSULE PO SCH (09:00)
[2022-08-20] MEDS: DOCUSATE SODIUM 250 MG CAPSULE PO SCH (09:00)
[2022-08-20] MEDS: MULTIVITAMINS WITH MINERALS, THERAPEUTIC TABLET PO SCH (09:00)
[2022-08-20] MEDS: FAMOTIDINE 20 MG TABLET PO SCH (09:00)
[2022-08-20] MEDS: GABAPENTIN 100 MG CAPSULE PO SCH (09:01)
[2022-08-20] MEDS: ETHYL ALCOHOL 62% ANTISEPTIC NASAL SANITIZER 0.6 ML AMPUL NASAL SCH (09:03)
[2022-08-20 13:06] LABS: GLUCOMETER DEV NAME(LOC) 2WR.1C; GLUCOSE,POINT OF CARE 171 MG/DL (70-110)
== END 2022-08-20 12:30 | disposition home health service (06) | DRG 58 ==
LOC: 2WR 12:05
PROVIDERS: ADMIT Nurse Practitioner Family; ATTEND Physical Medicine & Rehabilitation
DX: G81.91 Hemiplegia, unspecified affecting right dominant side (principal); I63.9 Cerebral infarction, unspecified; E87.1 Hypo-osmolality and hyponatremia; N13.30 Unspecified hydronephrosis; E11.22 Type 2 diabetes mellitus with diabetic chronic kidney disease; D64.9 Anemia, unspecified; E11.51 Type 2 diabetes mellitus with diabetic peripheral angiopathy without gangrene; R47.01 Aphasia; G62.9 Polyneuropathy, unspecified; I10 Essential (primary) hypertension; E78.5 Hyperlipidemia, unspecified; N40.0 Benign prostatic hyperplasia without lower urinary tract symptoms; E04.1 Nontoxic single thyroid nodule; K59.00 Constipation, unspecified; M25.551 Pain in right hip; E11.40 Type 2 diabetes mellitus with diabetic neuropathy, unspecified; I12.9 Hypertensive chronic kidney disease with stage 1 through stage 4 chronic kidney disease, or unspecified chronic kidney disease; R47.1 Dysarthria and anarthria; N13.2 Hydronephrosis with renal and ureteral calculous obstruction; R41.3 Other amnesia; N18.9 Chronic kidney disease, unspecified; Z89.511 Acquired absence of right leg below knee; Z79.899 Other long term (current) drug therapy
CPT/HCPCS: 73502; 74176; 80048; 80053; 81001; 82962; 84153; 85025; 87081; 87086; 87186; 90686; 90732; 92507; 97167; 97530; 97535; J1650; J1815